=== PATIENT | male | born 1980 | race Caucasian/White ===

== ENCOUNTER 2017-09-12 06:07 | Day surgery (SDC) | payer OTHER ==
[~2017-09-12] VITALS: Ht 172.7 cm; Wt 114.4 kg
[~2017-09-12 06:07] MED LIST: FEBU40TA; TERB250
== END 2017-09-12 09:20 | disposition home or self-care (01) ==
LOC: ORSCSDS 06:07
PROVIDERS: Orthopaedic Surgery
PROC: 01N50ZZ Release Median Nerve, Open Approach (ICD-10-PCS; principal; 2017-09-12 07:30)
PROC: 0RBN0ZZ Excision of Right Wrist Joint, Open Approach (ICD-10-PCS; principal; 2017-09-12 07:30)
DX: G56.01 Carpal tunnel syndrome, right upper limb (principal); M10.9 Gout, unspecified; Z79.899 Other long term (current) drug therapy
CPT/HCPCS: 88305; J2250; J3010

== ENCOUNTER 2017-11-09 09:22 | Day surgery (SDC) | payer OTHER ==
[~2017-11-09] VITALS: Ht 175.3 cm; Wt 114.7 kg
== END 2017-11-09 11:41 | disposition home or self-care (01) ==
LOC: ORSCSDS 09:22
PROVIDERS: Orthopaedic Surgery
PROC: 01N50ZZ Release Median Nerve, Open Approach (ICD-10-PCS; principal; 2017-11-09 10:45)
DX: G56.02 Carpal tunnel syndrome, left upper limb (principal)
CPT/HCPCS: J2250; J7120

== ENCOUNTER 2020-12-25 06:13 | Day surgery (SDC) | payer OTHER ==
[~2020-12-25] VITALS: Ht 172.7 cm; Wt 105.1 kg
[2020-12-25] MEDS ORDERED: FEBU40TA PO (06:51)
== END 2020-12-25 09:08 | disposition home or self-care (01) ==
LOC: ORSCSDS 06:13
PROVIDERS: Orthopaedic Surgery
PROC: 0JBD0ZZ Excision of Right Upper Arm Subcutaneous Tissue and Fascia, Open Approach (ICD-10-PCS; principal; 2020-12-25 07:30)
DX: M67.421 Ganglion, right elbow (principal); M10.9 Gout, unspecified; E66.9 Obesity, unspecified; Z68.35 Body mass index [BMI] 35.0-35.9, adult; Z79.899 Other long term (current) drug therapy
CPT/HCPCS: J0690; J2001; J2250; J2704

== ENCOUNTER 2022-08-05 13:06 | Emergency (ER) | payer OTHER ==
[~2022-08-05] VITALS: Ht 172.7 cm; Wt 113.4 kg
[~2022-08-05 13:06] MED LIST changes: +FEBU40TA PO
[2022-08-05] MEDS ORDERED: Cellcept500 MG PO (14:22)
[2022-08-05] MEDS ORDERED: COLCRYS0.6 M1 PO (14:22)
== END 2022-08-05 16:10 | disposition home or self-care (01) ==
LOC: ER 13:06
DX: R07.9 Chest pain, unspecified (principal); R51.9 Headache, unspecified; T50.995A Adverse effect of other drugs, medicaments and biological substances, initial encounter; M10.9 Gout, unspecified; Z88.8 Allergy status to other drugs, medicaments and biological substances; Z79.899 Other long term (current) drug therapy
CPT/HCPCS: 99285